=== PATIENT | female | born 1955 | race Caucasian/White ===

== ENCOUNTER 2017-04-07 05:35 | Day surgery (SDC) | payer BC ==
[2017-04-01 15:43] VITALS: BP 125/74
[~2017-04-07] VITALS: Ht 160 cm; Wt 78.6 kg
[~2017-04-07 05:35] MED LIST: LEVO50TA PO; LEVO75TA PO; LOSA25TA5 PO; OMEP-110 PO
[2017-04-07] MEDS ORDERED: LACTATED RINGERS 1,000 ML IV SCH (05:52)
[2017-04-07] MEDS ORDERED: LIDOCAINE 1%, 2ML ONE (05:56)
[2017-04-07] MEDS ORDERED: LIDOCAINE 1%, 2ML SQ PRN (06:00)
[2017-04-07] MEDS ORDERED: MIDAZOLAM 1 MG/ML, 2ML ONE (06:13)
[2017-04-07] MEDS ORDERED: FENTANYL PF 100 MCG/2ML ONE (06:13)
[2017-04-07] MEDS ORDERED: PROPOFOL 10 MG/ML, 20ML ONE (06:13)
[2017-04-07] MEDS ORDERED: ONDANSETRON 2MG/ML, 2ML ONE (06:13)
[2017-04-07] MEDS ORDERED: CEFAZOLIN 1,000 MG ONE (06:13)
[2017-04-07] MEDS ORDERED: DEXAMETHASONE 4 MG/ML, 1ML ONE (06:13)
[2017-04-07] MEDS ORDERED: LIDOCAINE GEL 2%, 5ML ONE (06:14)
[2017-04-07] MEDS ORDERED: LIDOCAINE-MPF 2% ,5ML ONE (06:15)
[2017-04-07] MEDS ORDERED: BUPIVACAINE/PF 0.5% ONE ×2 (06:19→06:21)
[2017-04-07] MEDS ORDERED: LIDOCAINE/PF 1%, 30ML ONE (06:22)
[2017-04-07] MEDS ORDERED: EPINEPHRINE 1 MG/ML, 1ML ONE (06:22)
[2017-04-07] MEDS ORDERED: EPHEDRINE 50 MG/ML, 1ML ONE (07:19)
[2017-04-07] MEDS ORDERED: SUCCINYLCHOLINE 20 MG/ML, 10ML ONE (07:19)
[2017-04-07] MEDS ORDERED: PHENYLEPHRINE 10 MG/ML ONE (07:19)
[2017-04-07] MEDS ORDERED: ONDANSETRON 2MG/ML, 2ML IVPush PRN (08:00)
[2017-04-07] MEDS ORDERED: DIAZEPAM 5 MG/ML, 2ML IVPush PRN (08:00)
[2017-04-07] MEDS ORDERED: MIDAZOLAM 1 MG/ML, 2ML IV PRN (08:00)
[2017-04-07] MEDS ORDERED: hydrALAzine 20 MG/ML, 1ML IV PRN (08:00)
[2017-04-07] MEDS ORDERED: PROMETHAZINE 25 MG/ML, 1ML IV PRN (08:00)
[2017-04-07] MEDS ORDERED: FENTANYL PF 100 MCG/2ML IV PRN (08:00)
[2017-04-07] MEDS ORDERED: MEPERIDINE/PF 25MG/0.5ML IVPush PRN (08:00)
[2017-04-07] MEDS ORDERED: ACETAMINOPHEN 325 MG TABLET PO PRN (08:00)
[2017-04-07] MEDS ORDERED: LABETALOL 5MG/ML, 20ML IV PRN (08:00)
[2017-04-07] MEDS ORDERED: LORazepam 2 MG/ML, 1ML IVPush PRN (08:00)
[2017-04-07] MEDS ORDERED: OXYcodone 5 MG/5 ML ORAL.SOL UDC PO PRN (08:00)
[2017-04-07] MEDS ORDERED: HYDROmorphone 1 MG/ML, 1ML IV PRN (08:00)
[2017-04-07] MEDS ORDERED: ALBUTEROL/IPRATROPIUM 2.5MG/0.5MG, 3 ML NPPB PRN (08:00)
[2017-04-07] MEDS ORDERED: OXYcodone 5 MG/5 ML ORAL.SOL UDC ONE (09:21)
[2017-04-07] MEDS ORDERED: ACETAMINOPHEN 325 MG TABLET ONE (09:22)
[2017-04-07] MEDS ORDERED: ACETAMINOPHEN 650 MG/20.3 ML UDC ONE (09:22)
[2017-04-07] MEDS ORDERED: OMEPRAZOLE 20 MG CAPSULE.DR PO SCH (09:30)
[2017-04-08] MEDS ORDERED: LOSARTAN 25MG TABLET PO SCH (09:00)
[2017-04-08] MEDS ORDERED: LEVOTHYROXINE 75 MCG TABLET PO SCH (09:00)
[2017-04-09] MEDS ORDERED: LEVOTHYROXINE 50 MCG TABLET PO SCH (06:00)
== END 2017-04-07 12:00 | disposition home or self-care (01) ==
LOC: OUT 05:35
PROVIDERS: ATTEND Orthopaedic Surgery
DX: S46.012A Strain of muscle(s) and tendon(s) of the rotator cuff of left shoulder, initial encounter (principal); S46.212A Strain of muscle, fascia and tendon of other parts of biceps, left arm, initial encounter; M25.812 Other specified joint disorders, left shoulder; M19.012 Primary osteoarthritis, left shoulder; M65.812 Other synovitis and tenosynovitis, left shoulder; X58.XXXA Exposure to other specified factors, initial encounter; Y93.89 Activity, other specified; Y92.89 Other specified places as the place of occurrence of the external cause; Y99.8 Other external cause status; E03.9 Hypothyroidism, unspecified; I10 Essential (primary) hypertension; K21.9 Gastro-esophageal reflux disease without esophagitis
CPT/HCPCS: 29823; 29824; 29826; 29827; 29828; C1713; J0171; J0330; J0690; J1100; J2250; J2370; J2405; J2704; J3010; J3490; J7120

== ENCOUNTER 2017-11-24 11:56 | Day surgery (SDC) | payer BC ==
[2017-11-21 15:32] LABS: ALANINE AMINOTRANSFERASE 19 U/L (12-78); ALBUMIN 3.7 g/dL (3.4-5.0); ANION GAP 8 mmol/L (5-15); CALCIUM 8.8 mg/dL (8.5-10.1); CHLORIDE 106 mmol/L (98-107)
[2017-11-21 15:35] LABS: ALKALINE PHOSPHATASE 64 U/L (45-117); BILIRUBIN,TOTAL 0.7 mg/dL (0.2-1.0); CREATININE 0.93 mg/dL (0.55-1.02)
[~2017-11-24] VITALS: Ht 160 cm; Wt 88.6 kg
[~2017-11-24 11:56] MED LIST changes: +LEVO50TA5 PO; +NAPR220C2 PO
[2017-11-24] MEDS ORDERED: MIDAZOLAM 1 MG/ML, 2ML ONE (12:28)
[2017-11-24] MEDS ORDERED: LACTATED RINGERS 1,000 ML IV SCH (12:29)
[2017-11-24] MEDS ORDERED: FENTANYL PF 250 MCG/5ML ONE (12:29)
[2017-11-24 12:47] VITALS: BP 153/91
[2017-11-24] MEDS ORDERED: LORazepam 2 MG/ML, 1ML IVPush PRN (13:30)
[2017-11-24] MEDS ORDERED: OXYcodone 5 MG/5 ML ORAL.SOL UDC PO PRN (13:30)
[2017-11-24] MEDS ORDERED: FENTANYL PF 100 MCG/2ML IV PRN (13:30)
[2017-11-24] MEDS ORDERED: HYDROmorphone 2 MG/ML, 1ML IV PRN (13:30)
[2017-11-24] MEDS ORDERED: PROMETHAZINE 25 MG/ML, 1ML IV PRN (13:30)
[2017-11-24] MEDS ORDERED: ALBUTEROL SULFATE 2.5 MG/3 ML NPPB PRN (13:30)
[2017-11-24] MEDS ORDERED: hydrALAzine 20 MG/ML, 1ML IV PRN (13:30)
[2017-11-24] MEDS ORDERED: LABETALOL 5MG/ML, 20ML IV PRN (13:30)
[2017-11-24] MEDS ORDERED: MEPERIDINE/PF 25MG/0.5ML IVPush PRN (13:30)
[2017-11-24] MEDS: LIDOCAINE/PF 1%, 30ML ONE (13:53)
[2017-11-24] MEDS: BUPIVACAINE/PF 0.5% INFIL ONE (13:53)
[2017-11-24] MEDS ORDERED: OMEPRAZOLE 20 MG CAPSULE.DR PO SCH (14:00)
[2017-11-24] MEDS ORDERED: LEVOTHYROXINE 50 MCG TABLET PO SCH (14:00)
[2017-11-24] MEDS ORDERED: PROPOFOL 10 MG/ML, 20ML ONE (16:07)
[2017-11-24] MEDS ORDERED: CEFAZOLIN 1,000 MG ONE (16:07)
[2017-11-24] MEDS ORDERED: ONDANSETRON 2MG/ML, 2ML ONE (16:07)
[2017-11-24] MEDS ORDERED: SUCCINYLCHOLINE 20 MG/ML, 10ML ONE (16:07)
[2017-11-24] MEDS ORDERED: DEXAMETHASONE 4 MG/ML, 1ML ONE (16:07)
[2017-11-25] MEDS ORDERED: LEVOTHYROXINE 50 MCG TABLET PO SCH (06:00)
[2017-11-25] MEDS ORDERED: LOSARTAN 25MG TABLET PO SCH (09:00)
== END 2017-11-24 17:00 | disposition home or self-care (01) ==
LOC: OUT 11:56
PROVIDERS: ATTEND Orthopaedic Surgery
DX: S43.431A Superior glenoid labrum lesion of right shoulder, initial encounter (principal); M19.011 Primary osteoarthritis, right shoulder; M75.111 Incomplete rotator cuff tear or rupture of right shoulder, not specified as traumatic; M75.41 Impingement syndrome of right shoulder; M65.811 Other synovitis and tenosynovitis, right shoulder; M66.821 Spontaneous rupture of other tendons, right upper arm; E03.9 Hypothyroidism, unspecified; K21.9 Gastro-esophageal reflux disease without esophagitis; I10 Essential (primary) hypertension; Z87.891 Personal history of nicotine dependence; Z98.890 Other specified postprocedural states; X58.XXXA Exposure to other specified factors, initial encounter; Y93.89 Activity, other specified; Y92.89 Other specified places as the place of occurrence of the external cause; Y99.8 Other external cause status
CPT/HCPCS: 29822; 29824; 29826; 29827; 29828; 36415; 64415; 80053; 93005; C1713; J0330; J0690; J1100; J2250; J2405; J2704; J3010; J3490